=== PATIENT | female | born 1960 | race Caucasian/White ===

== ENCOUNTER 2022-06-19 15:14 | Outpatient (REF) | payer OTHER, SELFPAY ==
--- NOTE | ~2022-06-19 | XR_ITS ---
EXAMINATION: XR CHEST CLINICAL INFORMATION: R05.9 - Cough, unspecified COMPARISON: Chest radiographs 01/29/2019 TECHNIQUE: 2 views of the chest were obtained. FINDINGS: There is mild hyperinflation similar to prior exam. Fine linear scarring versus disc atelectasis is present left lateral base. Lungs otherwise clear and there is no airspace consolidation or groundglass opacity or effusion. The heart is normal in size. The vascularity is normal. The hilar and mediastinal contours and bony structures are unremarkable. XR/XR chest 2V IMPRESSION: -Mild hyperinflation similar to prior exam 2018. -Fine linear scarring versus disc atelectasis left lateral base. Lungs otherwise clear.
== END 2022-06-19 15:15 | disposition home or self-care (01) ==
LOC: HO.HMGCX 15:14
PROVIDERS: PCP Internal Medicine; Visit Provider Internal Medicine
DX: R05.9 Cough, unspecified (principal)
CPT/HCPCS: 71046